=== PATIENT | male | born 1995 | race Caucasian/White ===

== ENCOUNTER 2017-07-02 14:18 | Emergency (ER) | payer BC ==
[~2017-07-02] VITALS: Ht 175.3 cm; Wt 73.0 kg
[2017-07-02 14:20] VITALS: TEMP 36.7; Ht 175.3 cm; Wt 73.0 kg
[2017-07-02] MEDS ORDERED: SODIUM CHLORIDE 0.9% 1000ML 2,000 ML IV STA (14:37)
[2017-07-02] MEDS ORDERED: ONDANSETRON INJ 2 MG/ML 2 ML VIAL IV STA (14:37)
[2017-07-02 15:20] LABS: EOS ABS # 0.06 K/uL (0-0.5); HEMATOCRIT 46.4 % (42-52); HEMOGLOBIN 16.8 g/dL (14.0-18.0); IG# 0.01 K/uL (0.00-0.02); LYMPH % 23.5 %; LYMPH ABS # 0.69 K/uL (1.2-3.4); MEAN CELL VOLUME 86.7 fL (80-100); MEAN CORPUSCULAR HEMOGLOBIN 31.4 pg (25-34); MEAN CORPUSCULAR HGB CONC 36.2 g/dl (32-36); MEAN PLATELET VOLUME 10.4 fL (7.4-10.4); MONO % 12.3 %; MONO ABS # 0.36 K/uL (0.11-0.59); NEUT % 61.9 %; NEUT ABS # 1.81 K/uL (1.4-6.5); PLATELET COUNT 181 K/uL (130-400); RED CELL DISTRIBUTION WIDTH CV 12.3 % (11.5-14.5); RED CELL DISTRIBUTION WIDTH SD 39.2 fL (36.4-46.3); WHITE BLOOD COUNT 2.93 K/uL (4.8-10.8)
[2017-07-02 15:41] LABS: ALBUMIN 3.8 gm/dl (3.4-5.0); CALCIUM 8.6 mg/dl (8.5-10.1); CREATININE 1.05 mg/dl (0.60-1.40); POTASSIUM 3.8 mmol/L (3.5-5.1)
[2017-07-02 15:44] LABS: TOTAL PROTEIN 7.1 gm/dl (6.4-8.2)
[2017-07-02 16:41] VITALS: BP 117/57; PULSE 69; O2SAT 97
--- NOTE | 2017-07-02 21:04 | EMERGENCY ROOM VISIT NOTE ---
History Report prepared by Zo: Kenyatta Morales Under the Supervision of: Dr. Aram Lofton D.O. First contact with patient: 14:24 Chief Complaint: GI ASSESSMENT Stated Complaint: GI BUG,DIARRHEA,VOMITING,BLOOD IN STOOL Nursing Triage Summary: pt states abd pain and diarrhea since last am. states he cannot keep anything down. History of Present Illness The patient is a 21 year old male who presents to the Emergency Room with complaints of persistent diarrhea starting yesterday. He was sick with nausea, vomiting, and diarrhea yesterday for several hours. The vomiting resolved at 1830. He is continuing to have diarrhea today. He is concerned that there is blood in his stool. He reports an orange/red color to his stool and a metallic smell. He is having some abdominal discomfort which improves after having a bowel movement. He has been drinking water and Gatorade. He had some abdominal pain after eating a bagel this morning. He denies any medical problems. He still has his gallbladder and appendix. His roommate had the same symptoms 3 days ago. He denies any recent antibiotic use. He has not been drinking from streams. Source of History: patient Onset: yesterday Position: abdomen Quality: other (diarrhea) Timing: other (persistent) Associated Symptoms: + nausea, + vomiting, + abdominal pain Review of Systems See HPI for pertinent positives & negatives. A total of 10 systems reviewed and were otherwise negative. Past Medical & Surgical Medical Problems: (1) No chronic problems Family History No pertinent family history stated. Social History Smoking Status: Never Smoker Occupation Status: [employer] student Current/Historical Medications No Active Prescriptions or Reported Meds Allergies Coded Allergies: No Known Allergies (Unverified , 07/02/17) Physical Exam Vital Signs Date Time Temp Pulse Resp B/P (MAP) Pulse Ox O2 Delivery O2 Flow Rate FiO2 07/02/17 16:41 69 18 117/57 97 Room Air 07/02/17 14:20 36.7 84 20 129/64 97 Room Air Physical Exam GENERAL: Sitting up in bed, alert, well appearing, well nourished, no distress, non-toxic EYE EXAM: normal conjunctiva. OROPHARYNX: no exudate, no erythema, lips, buccal mucosa, and tongue normal and mucous membranes are moist NECK: supple, no nuchal rigidity, no adenopathy, non-tender LUNGS: Clear to auscultation. Normal chest wall mechanics HEART: no murmurs, S1 normal and S2 normal ABDOMEN: abdomen soft, non-tender, normo-active bowel sounds, no masses, no rebound or guarding. BACK: Back is symmetrical on inspection and there is no deformity, no midline tenderness, no CVA tenderness. SKIN: no rashes and no bruising UPPER EXTREMITIES: upper extremities are grossly normal. LOWER EXTREMITIES: No pitting edema. Calves equal bilaterally. NEURO EXAM: Normal sensorium, cranial nerves II-XII grossly intact, normal speech, no gross weakness of arms, no gross weakness of legs. Medical Decision & Procedures Laboratory Results 07/02/17 15:05 Red Blood Count 5.35, Mean Corpuscular Volume 86.7, Mean Corpuscular Hemoglobin 31.4, Mean Corpuscular Hemoglobin Concent 36.2, Mean Platelet Volume 10.4, Neutrophils (%) (Auto) 61.9, Lymphocytes (%) (Auto) 23.5, Monocytes (%) (Auto) 12.3, Eosinophils (%) (Auto) 2.0, Basophils (%) (Auto) 0.0, Neutrophils # (Auto ) 1.81, Lymphocytes # (Auto) 0.69, Monocytes # (Auto) 0.36, Eosinophils # (Auto ) 0.06, Basophils # (Auto) 0.00 07/02/17 15:05 Test 07/02/17 14:59 07/02/17 15:05 Urine Color YELLOW Urine Appearance CLEAR (CLEAR) Urine pH 6.0 (4.5-7.5) Urine Specific [place] 1.018 (1.000-1.030) Urine Protein NEG (NEG) Urine Glucose (UA) NEG (NEG) Urine Ketones NEG (NEG) Urine Occult Blood NEG (NEG) Urine Nitrite NEG (NEG) Urine Bilirubin NEG (NEG) Urine Urobilinogen NEG (NEG) Urine Leukocyte Esterase NEG (NEG) Urine WBC (Auto) 1-5 /hpf (0-5) Urine RBC (Auto) 0-4 /hpf (0-4) Urine Hyaline Casts (Auto) 0 /lpf (0-5) Urine Epithelial Cells (Auto) 5-10 /lpf (0-5) Urine Bacteria (Auto) NEG (NEG) White Blood Count 2.93 K/uL (4.8-10.8) Red Blood Count 5.35 M/uL (4.7-6.1) Hemoglobin 16.8 g/dL (14.0-18.0) Hematocrit 46.4 % (42-52) Mean Corpuscular Volume 86.7 fL (80-100) Mean Corpuscular Hemoglobin 31.4 pg (25-34) Mean Corpuscular Hemoglobin Concent 36.2 g/dl (32-36) Platelet Count 181 K/uL (130-400) Mean Platelet Volume 10.4 fL (7.4-10.4) Neutrophils (%) (Auto) 61.9 % Lymphocytes (%) (Auto) 23.5 % Monocytes (%) (Auto) 12.3 % Eosinophils (%) (Auto) 2.0 % Basophils (%) (Auto) 0.0 % Neutrophils # (Auto) 1.81 K/uL (1.4-6.5) Lymphocytes # (Auto) 0.69 K/uL (1.2-3.4) Monocytes # (Auto) 0.36 K/uL (0.11-0.59) Eosinophils # (Auto) 0.06 K/uL (0-0.5) Basophils # (Auto) 0.00 K/uL (0-0.2) RDW Standard Deviation 39.2 fL (36.4-46.3) RDW Coefficient of Variation 12.3 % (11.5-14.5) Immature Granulocyte % (Auto) 0.3 % Immature Granulocyte # (Auto) 0.01 K/uL (0.00-0.02) Anion Gap 3.0 mmol/L (3-11) Est Creatinine Clear Calc Drug Dose 112.3 ml/min Estimated GFR () 117.9 Estimated GFR (Non- 101.7 BUN/Creatinine Ratio 14.2 (10-20) Calcium Level 8.6 mg/dl (8.5-10.1) Total Bilirubin 1.3 mg/dl (0.2-1) Direct Bilirubin 0.3 mg/dl (0-0.2) Aspartate Amino Transf (AST/SGOT) 28 U/L (15-37) Alanine Aminotransferase (ALT/SGPT) 39 U/L (12-78) Alkaline Phosphatase 81 U/L (45-117) Total Protein 7.1 gm/dl (6.4-8.2) Albumin 3.8 gm/dl (3.4-5.0) Lipase 91 U/L (73-393) Laboratory results per my review. Medications Administered Medications (Trade) Dose Ordered Sig/Shyanne Route Start Time Stop Time Status Last Admin Dose Admin Sodium Chloride 2,000 ml @ 999 mls/hr Q2H1M STAT IV 07/02/17 14:37 07/02/17 16:37 DC 07/02/17 14:43 999 MLS/HR Ondansetron HCl (Zofran Inj) 4 mg NOW STAT IV 07/02/17 14:37 07/02/17 14:38 DC 07/02/17 14:44 4 MG ED Course ED COURSE: Vital signs were reviewed and showed normal vitals. The patients medical record was reviewed The above diagnostic studies were performed and reviewed. ED treatments and interventions as stated above. 1432: The patient was evaluated in room A12B. A complete history and physical examination was performed. 1437: Zofran Inj 4 mg IV, Sodium Chloride 2000 ml @ 999 mls/hr IV. 1603: I reevaluated the patient. I updated him on the results. 1606: I discussed the patient's case with Stephany Chopra. He agrees with patient follow up as an outpatient and stool culture. 1624: Upon reevaluation, the patient is resting comfortably. I discussed my findings with the patient and he understands and agrees with the treatment plan. Based on the patients age, coexisting illnesses, exam and lab findings the decision to treat as an outpatient was made. The patient remained stable while under my care. The patient appeared well at the time of discharge. Medical Decision Differential diagnosis includes etiologies such as diverticulosis, AVM, coagulopathy, colitis, inflammatory bowel disease, malignancy, Melanie-Jones tear, esophagitis, peptic ulcer disease, variceal bleed, gastritis, epistaxis, fissure, hemorrhoids, as well as others were entertained. Patient is a 21-year-old male who presents the ER for nausea vomiting diarrhea started yesterday. Patient was unable to keep anything down. Today the vomiting has stopped and is able to drink without difficulty. He still is having persistent diarrhea. He notes in his stool he is seeing some blood. No recent trips, travel, drinking from streams or antibiotics. Friend was recently sick with the same symptoms on Thursday Tay. CBC shows a mild leukopenia. No anemia. BMP along with LFTs was unremarkable. Bilirubin was slightly elevated at 1.3. LFTs and lipase was normal. UA was negative. Patient had no abdominal pain on exam. Hemoccult was positive. Cultures were sent. Discussed with GI and they recommended following up as an outpatient. He has been hemodynamically stable. I do favor this is likely a gastroenteritis with a possible internal hemorrhoid bleed due to the frequency of bowel movements. Discussed with Pt concerning signs and symptoms to watch out for. Pt was instructed to follow up with their PCP and discussed with the patient their option to return to the ED at anytime for persistent or worsening symptoms. The appropriate anticipatory guidance and out-patient management, including indications for return to the emergency department, were explained at length to the patient and understood. Medication Reconcilliation Current Medication List: was personally reviewed by me Blood Pressure Screening Patient's blood pressure: Normal blood pressure Blood pressure disposition: Did not require urgent referral Consults Time Called: 1600 Consulting Physician: Stephany Chopra GI Returned Call: 1606 I discussed the patient's case with him. He agrees with patient follow up as an outpatient and stool culture. Impression Primary Impression: Diarrhea Additional Impressions: Vomiting Bright red blood per rectum Scribe Attestation The scribe's documentation has been prepared under my direction and personally reviewed by me in its entirety. I confirm that the note above accurately reflects all work, treatment, procedures, and medical decision making performed by me. Departure Information Dispostion Home / Self-Care Prescriptions No Active Prescriptions or Reported Meds Referrals No Doctor, Assigned (PCP) Mateo Alvarez MD Forms HOME CARE DOCUMENTATION FORM, IMPORTANT VISIT INFORMATION Patient Instructions ED Diarrhea Viral, My [facility] Additional Instructions Please follow up with your primary care doctor or if you are a student, [employer] [facility] with in the next 24 hours. Any worsening of your symptoms, please return to the ED immediately. This includes any fevers greater than 100.4, worsening pain, chest pain, shortness breath, persistent nausea, vomiting, unable to eat or drink, or any other concerning signs or symptoms from your standpoint. If he continued to have blood over the course the next 2 days or the amount increases in any way should return immediately to the ER. Problem Qualifiers Primary Impression: Diarrhea Diarrhea type: unspecified type Qualified Codes: R19.7 - Diarrhea, unspecified Additional Impressions: Vomiting Vomiting type: unspecified Vomiting Intractability: unspecified Nausea presence: unspecified Qualified Codes: R11.10 - Vomiting, unspecified
== END 2017-07-02 16:58 | disposition home or self-care (01) ==
LOC: C.EDB 14:21 → C.EDA 16:58
DX: R19.7 Diarrhea, unspecified (principal); R11.10 Vomiting, unspecified; K62.5 Hemorrhage of anus and rectum